=== PATIENT | female | born 1950 | race Caucasian/White ===

== ENCOUNTER 2017-02-05 17:57 | Emergency (ER) | payer BC, MEDICARE ==
[~2017-02-05] VITALS: Ht 165.1 cm; Wt 90.0 kg
[2017-02-05 17:59] VITALS: BP 173/84; PULSE 101; RESP 15; TEMP 97.7; O2SAT 99
[2017-02-05] MEDS ORDERED: predniSONE 20 MG TAB PO ONE (18:15)
--- NOTE | 2017-02-05 18:23 | PD ---
HPI Chief Complaint: Edema Time Seen by Provider: 18:09 Travel History International Travel<30 days: No Contact w/Intl Traveler<30days: No Traveled to known affect area: No History of Present Illness HPI 66-year-old female is to read yesterday from [place], presents the emergency department with sudden onset right MIP joint pain of the great toe. Patient denies any specific injury. No history of gout in the past. No recent changes in her routine. Patient states it feels hot and very sensitive even to light touch. Pain when not touching it is near 0, but with trying to ambulate it is 8-9 out of 10. Patient can take ibuprofen but is allergic to Naprosyn. PFSH Past Medical History ?: Not Social History Alcohol Use: Yes Tobacco Use: No Substance Use: No Allergies-Medications (Allergen,Severity, Reaction): Coded Allergies: naproxen (Verified Allergy, Unknown, 02/05/17) Reported Meds & Prescriptions Reported Meds & Active Scripts Active Prednisone 20 Mg Tab 20 Mg PO BID 5 Days Review of Systems Except as stated in HPI: all other systems reviewed are Neg General / Constitutional: No: Fever Eyes: No: Visual changes HENT: No: Headaches Cardiovascular: No: Chest Pain or Discomfort Respiratory: No: Shortness of Breath Gastrointestinal: No: Abdominal Pain Genitourinary: No: Dysuria Musculoskeletal: Positive: Arthralgias, Limited ROM, Pain Skin: No Rash Neurologic: No: Weakness Psychiatric: No: Depression Endocrine: No: Polydipsia Hematologic/Lymphatic: No: Easy Bruising Physical Exam Narrative GENERAL: Patient appears in acute distress. SKIN: Warm and dry. Normal color. Normal turgor. Patient has warm erythematous swollen right great toe MIP joint. No obvious signs of cellulitis or open wound. HEAD: Atraumatic. Normocephalic. EYES: Pupils equal and round. No scleral icterus. No injection or drainage. ENT: No nasal bleeding or discharge. Mucous membranes pink and moist. NECK: Trachea midline. No JVD. CARDIOVASCULAR: Regular rate and rhythm. RESPIRATORY: No accessory muscle use. Clear to auscultation. Breath sounds equal bilaterally. GASTROINTESTINAL: Abdomen soft, non-tender, nondistended. Hepatic and splenic margins not palpable. MUSCULOSKELETAL: Extremities without clubbing, cyanosis, or edema. No obvious deformities. SEE SKIN. No other significant findings are noted. NEUROLOGICAL: Awake and alert. No obvious cranial nerve deficits. Motor grossly within normal limits. Five out of 5 muscle strength in the arms and legs. Normal speech. PSYCHIATRIC: Appropriate mood and affect; insight and judgment normal. Data Data Last Documented VS Vital Signs Date Time Temp Pulse Resp B/P (MAP) Pulse Ox O2 Delivery O2 Flow Rate FiO2 02/05/17 17:59 97.7 101 15 173/84 (113) 99 Orders Orders Foot, Complete (Sip1ffn) (02/05/17 18:08) Ice/Cold Pack (02/05/17 18:08) Prednisone (Deltasone) (02/05/17 18:15) [facility] Medical Decision Making Medical Screen Exam Complete: Yes Emergency Medical Condition: Yes Differential Diagnosis Right great toe pain. Gouty arthritis. Bunion. Narrative Course X-ray of the right great toe was ordered. Patient is given 40 mg prednisone by mouth. X-ray shows no significant acute findings. Patient will be continued on prednisone 20 mg twice a day for the next 5 days. Patient take Tylenol as well as needed for pain. The patient should follow with her primary care physician upon return to [place] in the next week. 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 Patient will be continued on prednisone 20 mg twice a day for the next 5 days. Patient take Tylenol as well as needed for pain. The patient should follow with her primary care physician upon return to [place] in the next week. Med/Other Pt SpecificInfo: Prescription(s) given Scripts Prednisone (Prednisone) 20 Mg Tab 20 MG PO BID for 5 Days, #10 TAB 0 Refills Prov: Azalia Brooks DO 02/05/17 Disposition: 01 DISCHARGE HOME Condition: Stable Xu Ugarte Feb 05, 2017 18:23
[2017-02-05] MEDS ORDERED: PRED20 PO (18:24)
--- NOTE | 2017-02-05 18:37 | RADRPT ---
EXAM DATE/TIME: 02/05/2017 18:13 [facility] COMPARISON: No previous studies available for comparison. INDICATIONS : Left foot pain and swelling. No known injury. MEDICAL HISTORY : None. SURGICAL HISTORY : None. ENCOUNTER: Initial ACUITY: 1 day PAIN SCORE: 2/10 LOCATION: Left foot. FINDINGS: No acute bone destruction demonstrated. 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 No radiopaque foreign body demonstrated. CONCLUSION: No destruction or other acute bony abnormality demonstrated. Clint Asher MD on February 05, 2017 at 18:35 Board Certified Radiologist. This report was verified electronically.
== END 2017-02-05 18:53 | disposition home or self-care (01) ==
LOC: NEPK 17:57
DX: M10.9 Gout, unspecified (principal)
CPT/HCPCS: 73630; 99283; J7512